=== PATIENT | female | born 1990 | race Caucasian/White ===

== ENCOUNTER 2018-04-13 10:37 | Inpatient (IN) | payer BC ==
[2018-04-13] VITALS (23 sets, daily range): BP systolic 110–167; BP diastolic 58–87; PULSE 58–90; TEMP 97.8–98.8
[~2018-04-13] VITALS: Ht 167.6 cm; Wt 70.0 kg
[~2018-04-13 10:37] MED LIST: FERROUS SULFATE65 MG PO; MOTRIN 600600 MG/TAB PO; PERCOCET 325 MG1 TA2 PO; PRENATAL1 TA2 PO
[2018-04-13] MEDS ORDERED: LEVOXYL0.125 MG PO (11:03)
[2018-04-13] MEDS ORDERED: CONCEPT DHA1 CAP PO (11:04)
[2018-04-13 11:59] LABS: BASO % 0.7 % (0.0-2.0); EOS % 0.5 % (0-4.0); GRAN # 4.2 (1.4-6.5); GRAN % 69.7 % (42.2-75.2); HEMOGLOBIN 12.2 g/dl (12.5-16.0); LYMPH # 1.4 (1.2-3.4); LYMPH % 23.3 % (20.0-51.0); MEAN CELL VOLUME 97 fl (80.0-100.0); MEAN CORPUSCULAR HEMOGLOBIN 33 pg (27.0-31.0); MEAN CORPUSCULAR HGB CONC 34 g/dl (33.0-37.0); MONO # 0.3 (0.1-0.6); MONO % 5.5 % (1.7-9.3); PLATELET COUNT 149 K/mm3 (130-400); REDCELL DISTRIBUTION WIDTH-CV 12.7 % (11.5-14.5)
[2018-04-13 12:00] LABS: HEMATOCRIT 35.9 % (37.0-47.0)
[2018-04-13] MEDS ORDERED: NYSTATIN OR100 MU/ML PO (12:06)
[2018-04-14 02:45] VITALS: BP 115/78; PULSE 52
[2018-04-14 07:53] VITALS: BP 121/77; PULSE 54; TEMP 97.8
[2018-04-14] MEDS ORDERED: MOTRIN 800800 MG/TAB PO (09:01)
[2018-04-14 16:30] VITALS: BP 124/70; PULSE 62; TEMP 97.6
[2018-04-14 20:45] VITALS: BP 118/68; PULSE 63; TEMP 97.9
[2018-04-15 07:22] VITALS: BP 124/73; PULSE 80
[2018-04-15 10:00] VITALS: BP 108/51; PULSE 65; TEMP 98.6
== END 2018-04-15 13:45 | disposition home or self-care (01) | DRG 807 ==
LOC: LDRO 10:37 → LDR 11:16 → OB 21:00
PROVIDERS: Student in an Organized Health Care Education/Training Program
PROC: 10E0XZZ Delivery of Products of Conception, External Approach (ICD-10-PCS; principal; 2018-04-13)
PROC: 0HQ9XZZ Repair Perineum Skin, External Approach (ICD-10-PCS; 2018-04-13)
DX: O99.824 Streptococcus B carrier state complicating childbirth (principal); Z37.0 Single live birth; Z3A.38 38 weeks gestation of pregnancy; O99.284 Endocrine, nutritional and metabolic diseases complicating childbirth; E03.9 Hypothyroidism, unspecified; O77.0 Labor and delivery complicated by meconium in amniotic fluid; O70.0 First degree perineal laceration during delivery
CPT/HCPCS: J2540; J7120

== ENCOUNTER 2021-08-08 06:51 | Inpatient (IN) | payer BC ==
[~2021-08-08] VITALS: Ht 167.6 cm; Wt 73.2 kg
[2021-08-08] VITALS (41 sets, daily range): BP systolic 104–160; BP diastolic 54–91; PULSE 54–96; TEMP 97.4–98.3
[~2021-08-08 06:51] MED LIST changes: +CONCEPT DHA1 CAP PO; +LEVOXYL0.125 MG PO; +MOTRIN 800800 MG/TAB PO; +NYSTATIN OR100 MU/ML PO
--- NOTE | 2021-08-08 07:00 | NUR ---
pt ambulatory onto unit. changed into clean gown. FHR monitor/TOCO applied. Pt denies leaking of fluid, vaginal bleeding, decreased movement or contractions. Pt is oriented to room and plan of care is discussed. Pt verbalies understanding. Consents signed. Assessments done. 0725 Iv started in right forearm. No redness/drainage/edema noted. 0745 Pitocin started per protocol at 2mu.
[2021-08-08] MEDS ORDERED: PROFERRIN ES12 MG PO (07:10)
[2021-08-08] MEDS ORDERED: COLACE 100100 MG/CAP PO (07:10)
[2021-08-08 08:05] LABS: BASO % 0.3 % (0.0-2.0); EOS % 0.3 % (0.0-4.0); GRAN # 4.5 K/mm3 (1.4-6.5); GRAN % 71.1 % (42.2-75.2); HEMOGLOBIN 12.6 g/dl (12.5-16.0); LYMPH # 1.4 K/mm3 (1.2-3.4); MEAN CELL VOLUME 92 fl (80.0-100.0); MEAN CORPUSCULAR HEMOGLOBIN 32 pg (27-31); MEAN CORPUSCULAR HGB CONC 35 g/dl (33.0-37.0); MEAN PLATELET VOLUME 11.7 fl (7.4-10.4); MONO # 0.4 K/mm3 (0.1-0.6); PLATELET COUNT 181 K/mm3 (130-400); RED BLOOD COUNT 3.92 M/mm3 (4.10-5.30); REDCELL DISTRIBUTION WIDTH-CV 12.6 % (11.5-14.5)
[2021-08-08 08:11] LABS: HEMATOCRIT 36.2 % (37.0-47.0)
--- NOTE | 2021-08-08 16:00 | NUR ---
1532 SVE is C/+2. 1536 This RN instructs patient how to push. Patient pushing with contractions effectively. 1541 Dr Arauz called. 1545 Dr. Arauz in patient's room. Setting up for delivery. 1554 Spontaneous vaginal delivery of viable male infant. Infant stimulated and bulb suctioned. Cord clamped by Dr Arauz and cut by FOB. to mother's chest. Gracy Sanchez takes over care of . 1557 Spontaneous delivery of placenta. Pitocin bolus started per protocol. 2nd degree perineal laceration noted. Repaired by Dr Arauz. Fundal massage done. Firm/midline. Scant amt of bleeding noted. Safety precautions and plan of care discussed. Pt verbalizes understanding.
[2021-08-09 03:00] VITALS: BP 101/52; PULSE 49; TEMP 97.8
[2021-08-09 07:53] VITALS: BP 112/54; PULSE 59; TEMP 97.7
[2021-08-09] MEDS ORDERED: MOTRIN 800800 MG/TAB PO (08:28)
[2021-08-09] MEDS ORDERED: PERCOCET 325 MG1 TA2 PO (08:28)
--- NOTE | 2021-08-09 10:11 | NUR ---
Initial visit; Parents thanked [employer] for offering congratulations and God's blessings for the of their son. [employer] thanked family for choosing [facility].
[2021-08-09 16:00] VITALS: BP 108/59; PULSE 67; TEMP 98.2
[2021-08-09 20:45] VITALS: BP 116/53; PULSE 86; TEMP 98.3
[2021-08-10 08:50] VITALS: BP 115/53; PULSE 66; TEMP 97.9
== END 2021-08-10 11:55 | disposition home or self-care (01) | DRG 807 ==
LOC: LDR 06:51 → OB 06:51 → LDR 10:09 → OB 21:00
PROVIDERS: ADMIT Obstetrics & Gynecology
PROC: 10E0XZZ Delivery of Products of Conception, External Approach (ICD-10-PCS; principal; 2021-08-08)
PROC: 0KQM0ZZ Repair Perineum Muscle, Open Approach (ICD-10-PCS; 2021-08-08)
PROC: 10907ZC Drainage of Amniotic Fluid, Therapeutic from Products of Conception, Via Natural or Artificial Opening (ICD-10-PCS; 2021-08-08)
PROC: 3E033VJ Introduction of Other Hormone into Peripheral Vein, Percutaneous Approach (ICD-10-PCS; 2021-08-08)
DX: O99.284 Endocrine, nutritional and metabolic diseases complicating childbirth (principal); Z37.0 Single live birth; E03.9 Hypothyroidism, unspecified; O70.1 Second degree perineal laceration during delivery; Z3A.39 39 weeks gestation of pregnancy; Z23 Encounter for immunization
CPT/HCPCS: J2590; J2795; J7120

== ENCOUNTER → 2023-10-29 | Outpatient (CLI) | payer BC ==
[~2023-10-29] MED LIST changes: +COLACE 100100 MG/CAP PO; +PROFERRIN ES12 MG PO
== END ==
LOC: COL.VAS 10:05
DX: I34.0 Nonrheumatic mitral (valve) insufficiency (principal); I49.3 Ventricular premature depolarization